=== PATIENT | female | born 1950 | race Caucasian/White ===

== ENCOUNTER → 2016-11-05 | Outpatient (CLI) | payer MEDICARE, OTHER ==
[2015-04-04 11:14] VITALS: BP 108/68
[~2016-11-05] MED LIST: ASCO10002 PO; ASPI-482 PO; ASPI81TA2 PO; CALC-335 PO; CLOP75TA PO; FISH12002 PO; LISI2.5T PO; METO25TA2 PO; METO25TA4 PO; MULT1TAB52 PO; OXYC-323 PO; SIMV40TA3 PO; SIMV80TA3 PO
--- NOTE | 2016-11-05 11:15 | KCIC ---
LEFT HAND, THREE VIEWS, 11/05/2016: HISTORY: JOINT PAIN, THUMB PAIN THERE ARE MILD DEGENERATIVE CHANGES AT SCATTERED INTERPHALANGEAL JOINTS. THERE IS MODERATE SPURRING AT THE INTERPHALANGEAL JOINT OF THE THUMB. A SMALL WELL-DEFINED CALCIFIC DENSITY AT THAT LEVEL IS COMPATIBLE WITH AN OLD FRACTURE. NO EROSIVE CHANGES ARE SEEN. NO ACUTE FRACTURE OR DISLOCATION IS EVIDENT. IMPRESSION: 1. MILD SCATTERED DEGENERATIVE CHANGES. 2. NO ACUTE BONY ABNORMALITY IS DETECTED. Electronically signed by: Loki Robbins MD (Nov 05, 2016 11:13:47)
== END | disposition home or self-care (01) ==
LOC: KCIC 10:17
PROVIDERS: ATTEND Nurse Practitioner Family
DX: M79.642 Pain in left hand (principal)
CPT/HCPCS: 73130

== ENCOUNTER → 2016-12-30 | Outpatient (CLI) | payer MEDICARE, OTHER ==
[2015-04-04 11:14] VITALS: BP 108/68
--- NOTE | 2016-12-30 14:09 | RAD ---
DATE: 12/30/2016 EXAM: DIGITAL SCREEN LT W/CAD HISTORY: Previous right breast cancer COMPARISON: 12/29/2015 This study was interpreted with the benefit of Computerized Aided Detection (CAD). FINDINGS: The left breast is heterogeneously dense. No new or enlarging breast densities are seen. A benign-appearing lymph node is again noted in the left axillary region. Minimal benign calcification is present. No suspicious microcalcifications have developed. IMPRESSION: Stable left mammograms without evidence of malignancy. BI-RADS CATEGORY: 2 BENIGN FINDING(S) RECOMMENDED FOLLOW-UP: 12M 12 MONTH FOLLOW-UP PQRS compliance statement: Patient information was entered into a reminder system with a target due date for the next mammogram. Mammography is a sensitive method for finding small breast cancers, but it does not detect them all and is not a substitute for careful clinical examination. A negative mammogram does not negate a clinically suspicious finding and should not result in delay in biopsying a clinically suspicious abnormality. "Our facility is accredited by the [employer] Mammography Program."
== END | disposition home or self-care (01) ==
LOC: MAMMO 13:27
PROVIDERS: ATTEND Nurse Practitioner Family
DX: Z12.31 Encounter for screening mammogram for malignant neoplasm of breast (principal)
CPT/HCPCS: 77052; G0202; 77067